=== PATIENT | female | born 1970 | race Caucasian/White ===

== ENCOUNTER 2022-10-04 22:46 | Outpatient (CLI) | payer BC, SELFPAY | END 2022-10-04 22:47 | disposition home or self-care (01) | PROVIDERS: PCP Physician Assistant Medical; Visit Provider Internal Medicine | DX: G47.10 Hypersomnia, unspecified (principal) | CPT/HCPCS: 95810 ==

== ENCOUNTER 2023-03-08 15:21 | Outpatient (CLI) | payer BC, SELFPAY ==
--- NOTE | 2023-03-08 15:40 | CRLHL7_ITS ---
For Patients: As a result of the Century Cures Act, medical imaging exams and procedure reports are released immediately into your electronic medical record. You may view this report before your referring provider. If you have questions, please contact your health care provider. BILATERAL SCREENING MAMMOGRAM WITH COMPUTER-AIDED DETECTION AND TOMOSYNTHESIS TECHNIQUE: CC and MLO views were obtained. These mammographic images have been obtained using full-field digital technique. These mammographic images were interpreted with the benefit of computer-aided detection. Breast Tomosynthesis was used in this interpretation. COMPARISON FILM: 03/07/22, 12/29/20,11/18/19. FINDINGS: The breasts are heterogeneously dense, which may obscure small masses IMPRESSION: There is no radiographic evidence for malignancy. ASSESSMENT: BI-RADS Category 1: Negative RECOMMENDATION: Routine screening mammogram in 1 year. A lay language report of this examination will be provided to the patient. Porfirio Shaw M.D. Diagnostic Radiologist [email or web address] Transcribed: 3:36 pm DW/Dictated by: Porfirio Shaw MD @ 03/09/2023 9:22:00 AM (Electronically Signed)
== END 2023-03-08 15:22 | disposition home or self-care (01) ==
PROVIDERS: PCP Physician Assistant Medical; Visit Provider Physician Assistant Medical
DX: Z12.31 Encounter for screening mammogram for malignant neoplasm of breast (principal); R92.2 Inconclusive mammogram
CPT/HCPCS: 77063; 77067

== ENCOUNTER 2024-03-18 18:24 | Outpatient (CLI) | payer BC, SELFPAY ==
--- NOTE | 2024-03-18 18:40 | MM_ITS ---
Patient: YASEMIN ROBERTSON Facility:?[facility] [place] Patient ID:?[id number] Site Patient ID:?[id number]. Site :?[id number] Study:?XRay-Breast Bilateral 3D W/CAD-03/18/2024 6:53:31 PM Ordering Physician:?Allyson Oliva Final Report: BILATERAL SCREENING MAMMOGRAM WITH COMPUTER-AIDED DETECTION AND TOMOSYNTHESIS TECHNIQUE: CC and MLO views were obtained. These mammographic images have been obtained using full-field digital technique. These mammographic images were interpreted with the benefit of computer-aided detection. Breast Tomosynthesis was used in this interpretation. COMPARISON FILM: 03/08/23, 03/07/22, 12/29/20. FINDINGS: The breasts are heterogeneously dense, which may obscure small masses. IMPRESSION: There is no radiographic evidence for malignancy. ASSESSMENT: BI-RADS Category 2: Benign RECOMMENDATION: Routine screening mammogram in 1 year. A lay language report of this examination will be provided to the patient. Porfirio Shaw M.D. Diagnostic Radiologist [email or web address] DSM/sp R& Transcribed: 5:40 p.m. SP/Dictated by: Porfirio Shaw MD @ 03/19/2024 9:33:00 AM Signed by:?Porfirio Shaw MD @03/19/2024 6:52:37 PM (Electronic Signature)
== END 2024-03-18 18:25 | disposition home or self-care (01) ==
LOC: MAMMO 18:25
PROVIDERS: PCP Physician Assistant Medical; Visit Provider Physician Assistant Medical
DX: Z12.31 Encounter for screening mammogram for malignant neoplasm of breast (principal); R92.2 Inconclusive mammogram
CPT/HCPCS: 77063; 77067

== ENCOUNTER 2024-03-21 10:14 | Outpatient (CLI) | payer BC, SELFPAY ==
[2024-03-21 10:52] LABS: Hemoglobin A1C* 4.8 % (0-5.6)
[2024-03-21 11:04] LABS: Glucose* 102 mg/dL (60-115)
[2024-03-21 11:35] LABS: Free T4 Free Thyroxine* 2.36 ng/dL (0.70-1.85)
[2024-03-21 11:52] LABS: Thyroid Stimulating Hormone* < 0.015 uIU/mL (0.270-4.20)
[2024-03-22 12:59] LABS: Thyroid Peroxidase (TPO) Ab 271.1 IU/mL (0.0-9.0)
[2024-03-22 13:07] LABS: Thyroglob Bill Billed; Thyroglobulin Antibody 1.5 IU/mL (0.0-4.0); Thyroglobulin, Serum or Plasma 85.2 ng/mL (1.3-31.8)
[2024-03-23 11:47] LABS: Total T3 184 ng/dL (80-200)
[2024-03-29 16:35] LABS: T3 Reverse - LC-MS/MS 14.5 ng/dL (9.0-27.0); T3, Ratio (T3:RT3) 11.6 (4.2-11.0); T3, Total - LC-MS/MS 168 ng/dL (80-200)
== END 2024-03-21 10:15 | disposition home or self-care (01) ==
PROVIDERS: PCP Physician Assistant Medical; Visit Provider Nurse Practitioner Family
DX: E03.9 Hypothyroidism, unspecified (principal); R53.83 Other fatigue; E34.8 Other specified endocrine disorders
CPT/HCPCS: 36415; 82947; 83036; 84432; 84439; 84443; 84480; 84482; 86376; 86800

== ENCOUNTER 2024-03-28 12:21 | Outpatient (CLI) | payer BC, SELFPAY ==
[2024-03-29 08:38] LABS: Estradiol Premenol Female 58 pg/mL
[2024-03-29 15:31] LABS: DHEAS 92 ug/dL (35-256)
[2024-04-02 18:50] LABS: Sex Hormone Binding Globulin 76 nmol/L (17-125); Testosterone, Free LC-MS/MS 0.6 pg/mL (0.6-3.8); Testosterone, LC-MS/MS 6 ng/dL (9-55)
[2024-04-03 01:40] LABS: Free T3 5.9 pg/mL (2.5-4.3)
[2024-04-04 11:44] LABS: Progesterone, HPLC-MS/MS 0.11 ng/mL
== END 2024-03-28 12:22 | disposition home or self-care (01) ==
LOC: LAB 12:22
PROVIDERS: PCP Physician Assistant Medical; Visit Provider Nurse Practitioner Family
DX: E03.9 Hypothyroidism, unspecified (principal); R53.83 Other fatigue; E34.8 Other specified endocrine disorders
CPT/HCPCS: 36415; 82627; 82670; 84144; 84270; 84402; 84403; 84481

== ENCOUNTER 2024-12-18 10:27 | Outpatient (CLI) | payer OTHER, SELFPAY ==
[2024-12-22 03:11] LABS: Testosterone, Low Level 8 ng/dL (9-55)
== END 2024-12-18 10:28 | disposition home or self-care (01) ==
LOC: LAB 10:30
PROVIDERS: PCP Physician Assistant Medical; Visit Provider Nurse Practitioner Family
DX: E03.9 Hypothyroidism, unspecified (principal); R53.83 Other fatigue; I10 Essential (primary) hypertension
CPT/HCPCS: 36415; 84403; 84443

== ENCOUNTER 2025-06-10 09:32 | Outpatient (CLI) | payer OTHER, SELFPAY ==
--- NOTE | 2025-06-10 09:45 | CRLHL7_ITS ---
For Patients: As a result of the Century Cures Act, medical imaging exams and procedure reports are released immediately into your electronic medical record. You may view this report before your referring provider. If you have questions, please contact your health care provider. INDICATION: BILATERAL SCREENING MAMMOGRAM, ASYMPOTMATIC 54 Y/O FEMALE COMPARISON: 03/18/2024, 03/08/2023, 03/07/2022 TECHNIQUE: Digital mammogram in CC and MLO projections including computer-aided detection (CAD) and tomosynthesis. BREAST COMPOSITION: There are scattered areas of fibroglandular density. FINDINGS: No suspicious findings. ASSESSMENT: BI-RADS 1 Negative RECOMMENDATION: Annual screening mammogram. A lay language report of this examination will be provided to the patient. Dictated by: Karuna Reddy MD @ 06/11/2025 14:10:04 (Electronically Signed)
== END 2025-06-10 09:33 | disposition home or self-care (01) ==
LOC: MAMMO 09:33
PROVIDERS: PCP Physician Assistant Medical; Visit Provider Physician Assistant Medical
DX: Z12.31 Encounter for screening mammogram for malignant neoplasm of breast (principal)
CPT/HCPCS: 77063; 77067